=== PATIENT | female | born 1995 | race Caucasian/White ===

== ENCOUNTER 2020-01-17 10:28 | Outpatient (REF) | payer SELFPAY | END 2020-01-17 10:29 | disposition home or self-care (01) | LOC: HO.LAB 10:28 | PROVIDERS: Visit Provider Internal Medicine | DX: Z20.828 Contact with and (suspected) exposure to other viral communicable diseases (principal) | CPT/HCPCS: U0003 ==

== ENCOUNTER 2020-03-14 11:20 | Outpatient (REF) | payer OTHER, SELFPAY | END 2020-03-14 11:21 | disposition home or self-care (01) | LOC: HO.LAB 11:20 | PROVIDERS: Visit Provider Internal Medicine | DX: Z20.822 Contact with and (suspected) exposure to COVID-19 (principal) | CPT/HCPCS: 36415; C9803; U0003 ==

== ENCOUNTER 2025-02-03 02:19 | Emergency (ER) | payer MEDICAID, SELFPAY ==
--- NOTE | ~2025-02-03 | CT_ITS ---
EXAMINATION: CT ABDOMEN AND PELVIS WITH CONTRAST CLINICAL INFORMATION: Right lower quadrant pain. COMPARISON: October 17, 2018. TECHNIQUE: Multidetector volumetric images were obtained from the superior aspect of the liver through the pubic symphysis following administration 85 mL of Omnipaque 350 intravenous contrast. Sagittal and coronal reformatted images were obtained on the technologist's workstation. Oral contrast: No This CT examination was performed using dose optimization techniques as appropriate, variously including the following: *Automated exposure control *Adjustment of mA and/or kV according to patient size (this includes techniques or standardized protocols for targeted exams where dose is matched to indication/reason for exam; i.e. extremities or head) *Use of iterative reconstruction technique DLP: 554 mGy-cm FINDINGS: LUNG BASES: No acute airspace disease or gross pulmonary nodules. LIVER, GALLBLADDER, AND BILIARY TREE: Liver measures 15 cm. No enhancing mass. Main portal veins, hepatic veins and intrahepatic portion of the IVC are patent. Small focal fatty infiltration adjacent to the falciform ligament. Gallbladder is contracted. No pericholecystic fluid collection or gallbladder wall thickening. No intrahepatic or extrahepatic biliary ductal dilatation. PANCREAS: No solid or cystic lesion. No main pancreatic ductal dilatation. No peripancreatic fluid collections. SPLEEN: 8 cm. No solid or cystic lesion. ADRENAL GLANDS: No nodular lesions. KIDNEYS AND URETERS: No hydronephrosis. No gross nephrolithiasis. No enhancing mass. Normal enhancement of the renal cortex. No dilatation of the ureters. BLADDER: Fluid-filled nearly collapsed GASTROINTESTINAL TRACT: Abundant stool within the right hemicolon. Appendix is short and normal in caliber. No intestinal bowel obstruction pattern. No pneumoperitoneum. Collapsed appearance of the descending colon with questionable concentric wall thickening. No diverticulum. Trace of free fluid in the cul-de-sac. No peripheral enhancing fluid collections, peritoneal cavity. ABDOMINAL WALL: No umbilical hernia. LYMPH NODES: No mesenteric or retroperitoneal lymphadenopathy. Nonspecific prominent inguinal lymph nodes. VASCULAR: No aneurysm or dissection, abdominal aorta. No gross calcified plaques. PELVIC VISCERA: There is an intravaginal tampon. There is a 3.6 cm ovoid shaped fluid density centered in the left adnexa. Uterus is in retroversion. OSSEOUS STRUCTURES: No acute fracture or listhesis. No lytic or blastic lesions. CT/CT abdomen pelvis w IV con IMPRESSION: Abundant stool, right hemicolon. Collapsed descending colon versus colitis. 3.6 cm cyst, left ovary. Appendix is normal. Fleischner guidelines were followed. Electronically signed by: Caden Mcfarlane MD 02/03/2025 06:49 AM PAUL[facility]
[2025-02-03 02:22] VITALS: BP 117/66; PULSE 85; RESP 20; TEMP 36.7; O2SAT 96
[2025-02-03 02:37] LABS: Hematocrit 39.4 % (37.0-47.0); Hemoglobin 14.0 g/dl (12.0-16.0); Imm Gran Abs Auto 0.01 X10*3/uL (0.00-0.03); Imm Gran Pct Auto 0.1 % (0.0-0.4); Lymphocytes Absolute Auto 3.2 X10*3/uL (1.2-4.9); MANUAL DIFF FLAG NO; Mean Corpuscular HGB Conc 35.5 g/dl (31.0-35.0); Mean Corpuscular Hemoglobin 31.4 pg (27.0-33.0); Mean Corpuscular Volume 88.3 fL (80.0-98.0); NRBC Abs Auto 0.000 X10*3/uL (0.0-0.012); NRBC Pct Auto 0.0 /100WBC (0.0-0.2); Platelet Count 261 X10*3/uL (160-400); Red Blood Count 4.46 X10*6/uL (4.20-5.50); White Blood Count 8.7 X10*3/uL (4.8-10.8)
--- OUTSIDE RECORDS SUMMARY | 2025-02-03 02:39 | XMS_ITS | Clinical Summary ---
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 Name Role Phone Unavailable Primary Care Provider Unavailabl e Immunizations Immunization Administration Dates Next Due DTP 06/16/1995, 4,1993, 994 DTaP 5 01/15/1998 HPV, Quadrivalent 05/04/2008,01/05/2008,11/02/19 08 Hep B, ped/adol 01/15/1994,1993,1993 Hib (PRP-T) 06/16/1995, 4,1993, 994 IPV 01/15/1998, 4,1993, 994 MMR 01/15/1998,03/18/1994 Meningococcal Conj (Menactra) MCV4P 05/29/2005 Tdap 05/29/2005 Family History Relation Name Status Comments Brother Alive Brother: Heart disease, Asthma, Alive and well Father Alive Father: Alive a nd well Mother Alive Mother: Hypothy roidism Other Family history of Elevated cholesterol, Family history of Deafness, Family history of Seizure disorder, Family history of Migraines, Family history of Diabetes mellitus Sister 1 Alive Sister: Alive a nd well, Alive and well Sister 2 Alive Sister: Alive a nd well, Alive and well Social History Tobacco Use Types Packs/Day Years Used Date Smoking Tobacco: Never Assessed Comments Unknown Sex and Gender Information Value Date Recorded Sex Assigned at Not on file Legal Sex Female 4:29 PM EDT Gender Identity Not on file Sexual Orientation Not on file Last Filed Vital Signs Vital Sign Reading Time Taken Comments Blood Pressure 108/64 07/24/2009 12:00 AM EDT Pulse 68 07/24/2009 12:00 AM EDT Temperature 36.8 C (98.2 F) 07/24/2009 12:00 AM EDT Respiratory Rate - - Oxygen Saturation - - Inhaled Oxygen Concentration - - Weight 66.7 kg (147 lb) 07/24/2009 12:00 AM EDT Height 158.2 cm (5' 2.3 ) 07/24/2009 12:00 AM ED T Body Mass Index 26.63 07/24/2009 12:00 AM EDT Plan of Treatment Health Maintenance Due Date Last Done Comments Varicella Vaccines (1 of 2 - 13+ 2-dose series) 2006 DTaP,Tdap,and Td Vaccines (7 - Td or Tdap) 05/30/2015 05/29/2005, 01/15/1998, 06/16/1995, Additional history exists Influenza Vaccines (#1) 2024 COVID-19 Vaccine ( - 2024- season) 2024 Hepatitis B Vaccines Completed 01/15/1994, 1993, 1993 HIB Vaccines Completed 06/16/1995, 12/19, 1993, Additional history exists IPV Vaccines Completed 01/15/1998, 12/19, 1993, Additional history exists MMR Vaccines Completed 01/15/1998, 03/18/1994 Meningococcal Vaccine Aged Out 05/29/2005 No tomas bruce eligible based on patient's age to complete this topic HPV Vaccines Completed 05/04/2008, 12/17, 11/02/2007 Hepatitis A Vaccines Aged Out No long er eligible based on patient's age to complete this topic Men B Vaccine Aged Out No longer elig ible based on patient's age to complete this topic Pneumococcal Vaccine Aged Out No long er eligible based on patient's age to complete this topic
--- OUTSIDE RECORDS SUMMARY | 2025-02-03 02:39 | XMS_ITS | Encounter Summary ---
Author Organization [facility] Address [address] [place] [id number] Phone Care Team Providers Care Professor Of Nursing Name Role Phone Sandra Cheng DO Primary Care Provider [phone] Encounter Details Date Type Department Care Team (Late st Contact Info) Description 04/23/[address] [facility] Family Medicine [address] [place] [address] Family Medicine, Physician [address] [place], [place] [id number] Social History Tobacco Use Types Packs/Day Years Used Date Smoking Tobacco: Never Assessed Comments Unknown Sex and Gender Information Value Date Recorded Sex Assigned at Not on file Legal Sex Female 4:29 PM EDT Gender Identity Not on file Sexual Orientation Not on file documented as of this encounter Plan of Treatment Not on file documented as of this encounter Visit Diagnoses Not on filedocumented in this encounter Care Teams Professor Of Nursing Relationship Specialty Start Date End Date Sandra Cheng DO [address] [place] [id number] PCP - General 09/26/16 04/30/22 documented as of this encounter
--- OUTSIDE RECORDS SUMMARY | 2025-02-03 02:39 | XMS_ITS | Encounter Summary ---
Author Organization [facility] Address [address] [place] [address] Phone Care Team Providers Care Confidential Secretary Name Role Phone Sandra Cheng DO Primary Care Provider [phone] Encounter Details Date Type Department Care Team (Late st Contact Info) Description 10/02/2016 Conversion Encounter [facility] [address] [place] [address] Social History Tobacco Use Types Packs/Day Years [...] on filedocumented in this encounter Care Teams Confidential Secretary Relationship Specialty Start Date End Date Sandra Cheng DO [address] [place] [address] PCP - General 09/26/16 04/30/22 documented as of this encounter
[2025-02-03 02:50] LABS: Alanine Aminotransferase 37 U/L (0-31); Albumin Level 5.0 g/dL (3.5-5.0); Alkaline Phosphatase 55 U/L (39-117); Anion Gap 13 (12-20); Aspartate Amino Transferase 32 U/L (5-31); Blood Urea Nitrogen 10 mg/dL (9-16); Calcium 9.8 mg/dL (8.4-10.2); Carbon Dioxide 24 mmol/L (22-29); Chloride 105 mmol/L (96-108); Creatinine Clr Calc Pharmacy 90.5; Estimated Glomerular Filt Rate > 60; Potassium 3.9 mmol/L (3.3-5.1); Sodium 138 mmol/L (135-145); Total Protein 7.8 g/dL (6.5-8.0)
[2025-02-03 03:45] VITALS: BP 103/65; PULSE 78; RESP 18; TEMP 36.7; O2SAT 95
[2025-02-03 03:47] LABS: Appearance Urine Cloudy; Glucose Urine UA Negative (Negative); PH 5.0 (5.0-9.0); Specific Gravity - Urine 1.025 (1.005-1.025)
[2025-02-03 03:49] LABS: UPreg QC Valid YES
--- NOTE | 2025-02-03 05:19 | ED.ABDPAIN ---
HPI - Abdominal Pain General Chief Complaint: Abdominal Pain Stated Complaint: Stomach Pain Time Seen by Provider: 02/03/25 05:11 Source: patient Mode of arrival: ambulatory Limitations: no limitations History of Present Illness ED Provider: Dr. Modesta Ramos HPI narrative: patient comes to the emergency room complaining of right lower quadrant pain for 2 days. Patient states that she has 2 different kind of pains, 1 of them is in the right lower quadrant, feels a lot of pressure radiating towards the middle of the abdomen. Also, patient states that she has nerve like kind of pain, radiates from the hip on the right side down to the leg like a shooting pain. Also, patient states that she has history of ovarian cysts. Patient states that about a year ago when she was living in [place] she was told that she may need surgery for her ovarian cysts because they are very big. Patient does not know hope ache. Patient has not been seen by OBGYN here in [place]. Patient reports that she has finished her menstrual period. Related Data Previous Rx's ?Medication ?Instructions ?Recorded ketorolac 10 mg tablet 10 mg PO Q8H PRN pain #10 tabs 02/03/25 polyethylene glycol 3350 17 17 g PO DAILY PRN constipation 02/03/25 gram/dose oral powder (Miralax) #510 grams Allergies Allergy/AdvReac Type Severity Reaction Status Date / Time No Known Allergies Allergy Verified 02/03/25 02:24 Review of Systems Review of Systems Constitutional : No Weight loss, No Fever, No Chills, No Night Sweats, No Fatigue, No Malaise ENT/Mouth : No Hearing loss, No Ear Pain, No Nasal Congestion, No Sinus Pain, No Hoarseness, No sore throat, No Rhinorrhea, No Swallowing Difficulty Eyes: No Eye Pain, No Swelling, No Redness, No Foreign Body, No Discharge, No Vision Changes Cardiovascular : No Chest Pain, No SOB, No Dyspnea on Exertion, No Orthopnea, No Edema, No Palpitations Respiratory : No Cough, No Sputum, No Wheezing, No Smoke Exposure, No Dyspnea Gastrointestinal : Complaining of Nausea, No Vomiting, No Diarrhea, No Constipation, complaining of right lower quadrant pain Genitourinary : no irregular bleeding, No Dysuria, No Urinary Frequency, No Hematuria, No Urinary Incontinence, No Urgency, No Flank Pain, No Urinary Flow Changes, No Hesitancy Musculoskeletal : complaining of nerve like pain described as shooting pain from the back down the right leg. No joint pain, No Myalgias, No Joint Swelling Skin : No Skin Lesions, No rash Neuro : No Weakness, No Numbness, No Paresthesias, No Loss of Consciousness, No Dizziness, No Headache Psych : No Anxiety/Panic, No Depression, No SI/HI/AH/VH, No Social Issues, Heme/Lymph: No Bruising, No Bleeding,No Lymphadenopathy Endocrine : No Polyuria, No Polydipsia, No Temperature Intolerance [facility] Past Medical History Medical History (Updated 02/03/25 @ 05:23 by Modesta Ramos MD) Ovarian cyst Social History Social History Smoked in Last 30 Days: No Use of substances other than those prescribed or required for medical reasons: No Advance Directives: No Advance Directives Information Provided: No Patient : No Physical Exam ED Exam Exam: Appearance: Alert. Oriented X3. No acute distress. Eyes: Pupils equal, round and reactive to light. ENT: Pharynx normal. Neck: Normal inspection. Neck supple. No lymph nodes noted. No crepitus CVS: Normal heart rate and rhythm. Pulses normal. Normal S1 and S2 Respiratory: No respiratory distress. Breath sounds normal. No Wheezing. No rales Abdomen: Soft , [id number] tenderness to palpation in the right lower quadrant, no rebound or guarding, no pain at McBurney's point. No rigidity. No distention. Negative Tristan's sign Skin: Skin warm and dry. Normal skin color. Normal skin turgor. Extremities: No lower extremity edema. No Lacerations. No Rash, negative straight leg raise test bilaterally Neuro: Oriented X 3. No motor deficit. No sensory deficit. Moving all extremities. No slurred speech. CN 2 through 12 grossly intact Psych: calm, cooperative, normal affect Vital Signs: Vital Signs - 24 hr 02/03/25 02:22 02/03/25 03:45 02/03/25 06:15 Temperature 98.1 F 98.0 F 97.8 F Pulse Rate 85 78 68 Respiratory Rate 20 18 14 Blood Pressure 117/66 103/65 111/58 L Pulse Oximetry 96 95 98 Oxygen Delivery Method Room Air Room Air Room Air BMI result Body Mass Index 30.0 Course Course Course Narrative: all of patient's labs and imaging pending. Patient reports having large ovarian cysts, does not know how big. Diagnosed over a year ago by her OBGYN in [place]. Patient being given IV Zofran and ketorolac while we do the workup. Medical Decision Making Medical Decision Making [facility] Narrative: my interpretation of labs, no significant abnormality in patient's hematology and chemistry. Urinalysis negative for UTI CT scan: I was not stool in the right hemicolon, collapse descending colon versus colitis, 3.6 cm in the left ovary, appendix is normal overall, patient feels better. States that she has a PCP and will follow-up with them and also we will follow-up with her new OBGYN. Differential Diagnosis Differential Diagnoses: The differential diagnosis associated with the presentation includes ( Appendicitis, ovarian cyst, colitis, constipation) Admission/Observation Consideration of admission/observation: Escalation of care including admission/observation considered ( observation was considered given the patient's initial presentation.) Lab Data [facility] Lab Attestation statement: I reviewed the patient's lab results. 02/03/25 02:31 02/03/25 02:31 Labs: Lab Results 02/03/25 02/03/25 Range/Units 02:31 03:40 WBC 8.7 (4.8-10.8) X10*3/uL RBC 4.46 (4.20-5.50) X10*6/uL Hgb 14.0 (12.0-16.0) g/dl Hct 39.4 (37.0-47.0) % MCV 88.3 (80.0-98.0) fL MCH 31.4 (27.0-33.0) pg MCHC 35.5 H (31.0-35.0) g/dl RDW 12.0 (11.0-16.0) % Plt Count 261 (160-400) X10*3/uL MPV 10.8 (9.4-12.3) fL Immature Gran % (Auto) 0.1 (0.0-0.4) % Neut % (Auto) 55.6 (45-73) % Lymph % (Auto) 36.0 (20-40) % [place] % (Auto) 7.4 (2-11) % Eos % (Auto) 0.6 (0-4) % Baso % (Auto) 0.3 (0-2) % Lymph # (Auto) 3.2 (1.2-4.9) X10*3/uL [place] # (Auto) 0.7 (0.1-1.2) X10*3/uL Eos # (Auto) 0.1 (0.0-0.4) X10*3/uL Baso # (Auto) 0.0 (0.0-0.2) X10*3/uL Abs Immat Gran (auto) 0.01 (0.00-0.03) X10*3/uL Absolute Neuts (auto) 4.9 (2.0-8.3) x10*3/uL Absolute Nucleated RBC 0.000 (0.0-0.012) X10*3/uL Nucleated RBC % (auto) 0.0 (0.0-0.2) /100WBC Sodium 138 (135-145) mmol/L Potassium 3.9 (3.3-5.1) mmol/L Chloride 105 (96-108) mmol/L Carbon Dioxide 24 (22-29) mmol/L Anion Gap 13 (12-20) BUN 10 (9-16) mg/dL Creatinine 0.85 (0.5-1.4) mg/dL Estim Creat Clear Calc 90.5 Estimated GFR > 60 Random Glucose 91 (60-115) mg/dL Calcium 9.8 (8.4-10.2) mg/dL Total Bilirubin 0.4 (0.0-1.0) mg/dL AST 32 H (5-31) U/L ALT 37 H (0-31) U/L Alkaline Phosphatase 55 (39-117) U/L Total Protein 7.8 (6.5-8.0) g/dL Albumin 5.0 (3.5-5.0) g/dL Urine Color Yellow Urine Appearance Cloudy Urine pH 5.0 (5.0-9.0) Ur Specific [place] 1.025 (1.005-1.025) Urine Protein Negative (Neg-Trace) mg/dL Urine Glucose (UA) Negative (Negative) mg/dL Urine Ketones 15 (Negative) mg/dL Urine Blood Negative (Negative) Urine Nitrite Negative (Negative) Ur Leukocyte Esterase Negative (Negative) Urine Test NEGATIVE (NEGATIVE) Independent Interpretation I performed an independent interpretation of an: CT Scan Radiology Impression Discussion of test interpretation with radiology: I have reviewed the radiologist's reading. Radiologist Impression: LUNG BASES: No acute airspace disease or gross pulmonary nodules. LIVER, GALLBLADDER, AND BILIARY TREE: Liver measures 15 cm. No enhancing mass. Main portal veins, hepatic veins and intrahepatic portion of the IVC are patent. Small focal fatty infiltration adjacent to the falciform ligament. Gallbladder is contracted. No pericholecystic fluid collection or gallbladder wall thickening. No intrahepatic or extrahepatic biliary ductal dilatation. PANCREAS: No solid or cystic lesion. No main pancreatic ductal dilatation. No peripancreatic fluid collections. SPLEEN: 8 cm. No solid or cystic lesion. ADRENAL GLANDS: No nodular lesions. KIDNEYS AND URETERS: No hydronephrosis. No gross nephrolithiasis. No enhancing mass. Normal enhancement of the renal cortex. No dilatation of the ureters. BLADDER: Fluid-filled nearly collapsed GASTROINTESTINAL TRACT: Abundant stool within the right hemicolon. Appendix is short and normal in caliber. No intestinal bowel obstruction pattern. No pneumoperitoneum. Collapsed appearance of the descending colon with questionable concentric wall thickening. No diverticulum. Trace of free fluid in the cul-de-sac. No peripheral enhancing fluid collections, peritoneal cavity. ABDOMINAL WALL: No umbilical hernia. LYMPH NODES: No mesenteric or retroperitoneal lymphadenopathy. Nonspecific prominent inguinal lymph nodes. VASCULAR: No aneurysm or dissection, abdominal aorta. No gross calcified plaques. PELVIC VISCERA: There is an intravaginal tampon. There is a 3.6 cm ovoid shaped fluid density centered in the left adnexa. Uterus is in retroversion. OSSEOUS STRUCTURES: No acute fracture or listhesis. No lytic or blastic lesions. CT/CT abdomen pelvis w IV con IMPRESSION: Abundant stool, right hemicolon. Collapsed descending colon versus colitis. 3.6 cm cyst, left ovary. Appendix is normal. Fleischner guidelines were followed. Medications Administered Discontinued Medications Generic Name Dose Route Start Last Admin Trade Name Freq PRN Reason Stop Dose Admin Iohexol 85 ml 02/03/25 06:04 02/03/25 06:04 Iohexol 350 Mg/Ml 100 Ml Infus..Btl IV 02/03/25 06:05 85 ml ONCE ONE Administration Ketorolac Tromethamine 30 mg 02/03/25 05:13 02/03/25 05:36 Ketorolac Tromethamine 30 Mg/Ml Vial IVPUSH 02/03/25 05:14 30 mg ONCE ONE Administration Ondansetron HCl 4 mg 02/03/25 05:13 02/03/25 05:36 Ondansetron Hcl 4 Mg/2 Ml Vial IVPUSH 02/03/25 05:14 4 mg ONCE ONE Administration Critical Care Time Critical Care Time Critical Care Time: Yes Total Critical Care Time: 35 Attestation: I have personally provided critical care time. Time includes review of lab data, radiology results, discussion with consultants, and monitoring for potential decompensation. Intervention performed as documented. Discharge Plan Discharge Clinical Impression: Acute right lower quadrant pain, Sciatica Patient Disposition: Home, Self-Care Instructions: Constipation (ED), Sciatica (ED), Abdominal Pain (ED) Additional Instructions: Please follow-up with your primary care physician tomorrow. If you have any worsening or new symptoms, please return to the emergency room or call 911 Prescriptions: New ketorolac 10 mg tablet 10 mg PO Q8H PRN (Reason: pain) Qty: 10 0RF Rx Instructions: maximum total duration of 5 days from all oral, intranasal, or parenteral formulations polyethylene glycol 3350 [Miralax] 17 gram/dose powder 17 g PO DAILY PRN (Reason: constipation) Qty: 510 0RF Stand Alone Forms: Work/School Release Print Language: Omani
[2025-02-03] MEDS: iohexoL 350 MG/ML 100 ML INFUS..BTL 85 ML IV (06:04)
[2025-02-03 06:15] VITALS: BP 111/58; PULSE 68; RESP 14; TEMP 36.6; O2SAT 98
[2025-02-03 08:33] VITALS: BP 114/62; PULSE 70; RESP 16; TEMP 36.6; O2SAT 99
== END 2025-02-03 08:48 | disposition home or self-care (01) ==
PROVIDERS: Emergency Provider Emergency Medicine
DX: R10.31 Right lower quadrant pain (principal); M54.31 Sciatica, right side; N83.209 Unspecified ovarian cyst, unspecified side
CPT/HCPCS: 36415; 74177; 80053; 81003; 81025; 85025; 96374; 96375; 99284; 99285; J1885; J2405; Q9967

== ENCOUNTER → 2025-02-03 05:13 | Outpatient (BNV) | payer MEDICAID, SELFPAY | PROVIDERS: Emergency Provider Emergency Medicine; Visit Provider Radiology Diagnostic Radiology | DX: N83.202 Unspecified ovarian cyst, left side (principal) | CPT/HCPCS: 74177 ==